=== PATIENT | female | born 1980 | race African-American/Black ===

== ENCOUNTER 2019-03-09 15:41 | Emergency (ER) | payer OTHER ==
--- NOTE | 2019-03-09 16:45 | XRay Report ---
RIGHT WRIST 3 VIEWS INDICATION / CLINICAL INFORMATION: WRIST PAIN. COMPARISON: None available. FINDINGS: Negative ulnar variance. No other significant skeletal abnormality. Signer Name: Eris VICK Signed: 03/09/2019 4:41 PM Work[facility] Name[id number]
[2019-03-09 17:13] VITALS: BP 104/61
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
== END 2019-03-10 17:15 | disposition home or self-care (01) ==
LOC: ED 15:41
DX: M77.9 Enthesopathy, unspecified (principal)